=== PATIENT | female | born 2000 | race American Indian/Alaskan Native ===

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

== ENCOUNTER 2018-05-13 17:04 | Emergency (ER) | payer MEDICAID ==
[2018-05-13 17:11] VITALS: BMI 27.3
[2018-05-13 17:41] VITALS: BP 111/71; PULSE 69; RESP 18; TEMP 98.2; O2SAT 98
--- NOTE | 2018-05-13 18:48 | ED PDOC ---
Arrival/HPI - General Historian: Patient - History of Present Illness Narrative History of Present Illness (Text): 05/13/18 18:45 18yo female with no pmhx present with complaint of posterior headache. states she hit her head on a patio door yesterday and came to ED today for persistent headache. States she did not take any medication for the headache. Denies dizziness, nausea, vomiting, focal weakness, LOC, neck pain, any other complaint. <Cecy Pineda A - Last Filed: 05/13/18 19:30> <Kai Fuentes - Last Filed: 05/13/18 22:41> - General Chief Complaint: Trauma Time Seen by Provider: 05/13/18 17:17 Past Medical History - Provider Review Nursing Documentation Reviewed: Yes - Infectious Disease Hx of Infectious Diseases: None - Hematological/Oncological Hx Sickle Cell Trait: Yes - Psychiatric Hx Substance Use: No - Anesthesia Hx Anesthesia: Yes <Cecy Pineda A - Last Filed: 05/13/18 19:30> - Reproductive Currently : Unknown <Kai Fuentes - Last Filed: 05/13/18 22:41> Family/Social History - Physician Review Nursing Documentation Reviewed: Yes Family/Social History: Unknown Family HX Smoking Status: Never Smoked Hx Alcohol Use: No Hx Substance Use: No <Cecy Pineda A - Last Filed: 05/13/18 19:30> Allergies/Home Meds <Cecy Pineda A - Last Filed: 05/13/18 19:30> <Kai Fuentes - Last Filed: 05/13/18 22:41> Allergies/Adverse Reactions: Allergies No Known Allergies Allergy (Verified 05/13/18 17:11) Home Medications: Home Meds Medication Instructions Recorded Confirmed RX: No Known Home Med 05/13/18 05/13/18 Review of Systems - Physician Review All systems were reviewed & negative as marked: Yes - Review of Systems Constitutional: Normal Eyes: Normal ENT: Normal Respiratory: Normal Cardiovascular: Normal Gastrointestinal: Normal Genitourinary Female: Normal Musculoskeletal: Normal Skin: Normal Neurological: Headache. absent: Dizziness, Focal Weakness, Gait Changes, Speech Changes Endocrine: Normal Hemo/Lymphatic: Normal Psychiatric: Normal <Cecy Pineda A - Last Filed: 05/13/18 19:30> Physical Exam Vital Signs Reviewed: Yes Vital Signs Temp Pulse Resp BP Pulse Ox 05/13/18 17:15 98.2 F 69 18 111/71 98 Temperature: Afebrile Blood Pressure: Normal Pulse: Regular Respiratory Rate: Normal Appearance: Positive for: Well-Appearing, Non-Toxic, Comfortable Pain Distress: None Mental Status: Positive for: Alert and Oriented X 3 - Systems Exam Head: Present: Atraumatic, Normocephalic Pupils: Present: PERRL Extroacular Muscles: Present: EOMI Conjunctiva: Present: Normal Mouth: Present: Moist Mucous Membranes Neck: Present: Normal Range of Motion Respiratory/Chest: Present: Clear to Auscultation, Good Air Exchange. No: Respiratory Distress, Accessory Muscle Use Cardiovascular: Present: Regular Rate and Rhythm, Normal S1, S2. No: Murmurs Abdomen: No: Tenderness, Distention, Peritoneal Signs Back: Present: Normal Inspection Upper Extremity: Present: Normal Inspection. No: Cyanosis, Edema Lower Extremity: Present: Normal Inspection. No: Edema Neurological: Present: GCS=15, CN II-XII Intact, Speech Normal, Motor Func Grossly Intact, Normal Sensory Function, Normal Cerebellar Funct, Norm Deep Tendon Reflexes, Gait Normal, Memory Normal, Other (No focal neurological deficit) Skin: Present: Warm, Dry, Normal Color. No: Rashes Psychiatric: Present: Alert, Oriented x 3, Normal Insight, Normal Concentration <Diru,Happiness A - Last Filed: 05/13/18 19:30> Vital Signs Temp Pulse Resp BP Pulse Ox 05/13/18 17:15 98.2 F 69 18 111/71 98 <Kai Fuentes - Last Filed: 05/13/18 22:41> Medical Decision Making ED Course and Treatment: 05/13/18 19:30 PT present to ED for stated history. She was neurologically intact in ED. She is not in any distress. Her neck is supple and she have no meningeal signs. Tylenol Head CT Reassess Pt is pending head CT. she was endorsed to [facility] to f/u head CT and dispo pt - RAD Interpretation Radiology Orders: 05/13/18 17:52 HEAD W/O CONTRAST [CT] Stat - Medication Orders Current Medication Orders: Discontinued Medications Acetaminophen (Tylenol 325mg Tab) 650 mg PO STAT STA Stop: 05/13/18 17:53 Last Admin: 05/13/18 18:03 Dose: 650 mg MAR Pain/Vitals Document 05/13/18 18:03 SRE (Rec: 05/13/18 18:04 [id number] Pain Reassessment Is This A Pain ReAssessment? Yes Sleep Is patient sleeping during reassessment? No Presence of Pain Presence of Pain Yes Pain Scale Used Protocol: [facility] Pain Scale Used Numeric Location Pain Location [employer] Description Intermittent <Diru,Happiness A - Last Filed: 05/13/18 19:30> ED Course and Treatment: 05/13/18 20:[address] pt no longer bedside . elopement - RAD Interpretation Radiology Orders: 05/13/18 17:52 HEAD W/O CONTRAST [CT] Stat - Medication Orders Current Medication Orders: Discontinued Medications Acetaminophen (Tylenol 325mg Tab) 650 mg PO STAT STA Stop: 05/13/18 17:53 Last Admin: 05/13/18 18:03 Dose: 650 mg MAR Pain/Vitals Document 05/13/18 18:03 SRE (Rec: 05/13/18 18:04 [id number] Pain Reassessment Is This A Pain ReAssessment? Yes Sleep Is patient sleeping during reassessment? No Presence of Pain Presence of Pain Yes Pain Scale Used Protocol: [facility] Pain Scale Used Numeric Location Pain Location [employer] Description Intermittent <Kai Fuentes - Last Filed: 05/13/18 22:41> Disposition/Present on Arrival - Present on Arrival History of DVT/PE: No History of Uncontrolled Diabetes: No Urinary Catheter: No History of Decub. Ulcer: No History Surgical Site Infection Following: None <Diru,Happiness A - Last Filed: 05/13/18 19:30> - Present on Arrival Any Indicators Present on Arrival: No - Disposition Have Diagnosis and Disposition been Completed?: Yes Disposition Time: 17:00 <Kai Fuentes - Last Filed: 05/13/18 22:41> - Disposition Diagnosis: Head injury Disposition: ELOPEMENT - ER ONLY Condition: UNKNOWN Referrals: Cal Begum APN [Primary Care Provider] - Follow up with primary Forms: [place] [employer] (Turkmen)
== END 2018-05-13 20:42 | disposition left against medical advice (07) ==
LOC: ED 17:04
DX: S09.90XA Unspecified injury of head, initial encounter (principal); X58.XXXA Exposure to other specified factors, initial encounter; D57.3 Sickle-cell trait

== ENCOUNTER 2018-06-30 03:45 | Emergency (ER) | payer MEDICAID ==
[2018-06-30 03:57] VITALS: TEMP 98.3; BMI 27.4
--- NOTE | 2018-06-30 04:23 | ED PDOC ---
Arrival/HPI - General Chief Complaint: Cough, Cold, Congestion Time Seen by Provider: 06/30/18 03:55 Historian: Patient - History of Present Illness Narrative History of Present Illness (Text): 06/30/18 04:19 A 18 year old female with no significant past medical history presents to the emergency room complaining of cold symptoms for the past fwe days. Patient reports experiencing dry cough and sore throat. Patient denies any fever, shortness of breath, or any other complaints. PMD: Dr. Begum Time/Duration: Other (past few days) Symptom Onset: Gradual Symptom Course: Unchanged Activities at Onset: Light Context: Home Past Medical History - Provider Review Nursing Documentation Reviewed: Yes - Infectious Disease Hx of Infectious Diseases: None - Hematological/Oncological Hx Sickle Cell Trait: Yes - Psychiatric Hx Substance Use: No - Anesthesia Hx Anesthesia: Yes Family/Social History - Physician Review Nursing Documentation Reviewed: Yes Family/Social History: No Known Family HX Smoking Status: Never Smoked Hx Alcohol Use: No Hx Substance Use: No Allergies/Home Meds Allergies/Adverse Reactions: Allergies No Known Allergies Allergy (Verified 06/30/18 03:57) Review of Systems - Physician Review All systems were reviewed & negative as marked: Yes - Review of Systems Constitutional: absent: Fevers, Other (chills) Respiratory: Cough (dry cough). absent: SOB Cardiovascular: Chest Pain (chest discomfort) Musculoskeletal: absent: Back Pain Physical Exam Vital Signs Reviewed: Yes Vital Signs Temp Pulse Resp BP Pulse Ox 06/30/18 03:55 98.3 F 79 19 112/73 99 Temperature: Afebrile Blood Pressure: Normal Pulse: Regular Respiratory Rate: Normal Appearance: Positive for: Well-Appearing Mental Status: Positive for: Alert and Oriented X 3 - Systems Exam Head: Present: Atraumatic, Normocephalic Pupils: Present: PERRL Extroacular Muscles: Present: EOMI Conjunctiva: Present: Normal Mouth: Present: Moist Mucous Membranes Pharnyx: Present: ERYTHEMA (positive erythema to posterior pharynx). No: EXUDATE, TONSILS ENLARGED, Peritonsilar Swelling, Uvular Deviation, Muffled/Hoarse Voice, Strider, Soft Palate/Uvular Edema Nose (Internal): Present: Rhinorrhea Neck: Present: Normal Range of Motion Respiratory/Chest: Present: Clear to Auscultation, Good Air Exchange. No: Respiratory Distress, Accessory Muscle Use Cardiovascular: Present: Regular Rate and Rhythm, Normal S1, S2. No: Murmurs Abdomen: No: Tenderness, Distention, Peritoneal Signs Back: Present: Normal Inspection Upper Extremity: Present: Normal Inspection. No: Cyanosis, Edema Lower Extremity: Present: Normal Inspection. No: Edema Neurological: Present: GCS=15, CN II-XII Intact, Speech Normal Skin: Present: Warm, Dry, Normal Color. No: Rashes Psychiatric: Present: Alert, Oriented x 3, Normal Insight, Normal Concentration Medical Decision Making ED Course and Treatment: 06/30/18 04:19 Impression: 18 year old female presenting to the emergency room complaining of cold symptoms. Plan: -- Chest X-ray -- Reassess and disposition Prior Visits: Notes and results from previous visits were reviewed. Progress Notes: 06/30/18 04:43 Chest Xray reviewed by me, shows no acute process. - RAD Interpretation Radiology Orders: 06/30/18 04:15 CHEST PORTABLE [RAD] Stat - Scribe Statement The provider has reviewed the documentation as recorded by the Scribangelica Loo All medical record entries made by the Scribe were at my direction and personally dictated by me. I have reviewed the chart and agree that the record accurately reflects my personal performance of the history, physical exam, medical decision making, and the department course for this patient. I have also personally directed, reviewed, and agree with the discharge instructions and disposition. Disposition/Present on Arrival - Present on Arrival Any Indicators Present on Arrival: No History of DVT/PE: No History of Uncontrolled Diabetes: No Urinary Catheter: No History of Decub. Ulcer: No History Surgical Site Infection Following: None - Disposition Have Diagnosis and Disposition been Completed?: Yes Diagnosis: Bronchitis, Pharyngitis Disposition: HOME/ ROUTINE Disposition Time: 05:16 Patient Plan: Discharge Condition: GOOD Discharge Instructions (ExitCare): Sore Throat, Adult (DC), Acute Bronchitis, Adult (DC) Additional Instructions: Drink plenty of cool liquids/take meds as prescribed/follow up with your doctor this week Prescriptions: Benzonatate [Tessalon Perles] 100 mg PO TID PRN #21 sgl PRN Reason: Cough Azithromycin [Zithromax] 250 mg PO DAILY #6 tab Referrals: Begum,Cal J, COSMETICIAN [Primary Care Provider] - Follow up with primary Forms: [facility] (Swedish), WORK NOTE
[2018-06-30 05:29] VITALS: BP 115/72; PULSE 75; RESP 18; O2SAT 100
--- NOTE | 2018-06-30 10:00 | RAD ---
Date of service: 06/30/2018 HISTORY: cough COMPARISON: No prior. FINDINGS: LUNGS: The lungs are well inflated and clear. PLEURA: No pleural effusions or pneumothorax. CARDIOVASCULAR: The heart is normal in size. No aortic atherosclerotic calcifications present. OSSEOUS STRUCTURES: Within normal limits for the patient's age. VISUALIZED UPPER ABDOMEN: Normal. OTHER FINDINGS: None. IMPRESSION: No active pulmonary disease.
== END 2018-06-30 05:27 | disposition home or self-care (01) ==
LOC: ED 03:45
DX: J40 Bronchitis, not specified as acute or chronic (principal); J02.9 Acute pharyngitis, unspecified; D57.3 Sickle-cell trait